=== PATIENT | male | born 1930 | race Caucasian/White ===

== ENCOUNTER 2016-08-30 10:31 | Emergency (ER) | payer MEDICARE, OTHER | END 2016-08-30 13:31 | disposition home or self-care (01) | LOC: D.ER 10:31 | DX: S91.115A Laceration without foreign body of left lesser toe(s) without damage to nail, initial encounter (principal); W22.8XXA Striking against or struck by other objects, initial encounter; Y93.89 Activity, other specified; Y92.019 Unspecified place in single-family (private) house as the place of occurrence of the external cause; Z95.0 Presence of cardiac pacemaker; I48.2 Chronic atrial fibrillation; N18.9 Chronic kidney disease, unspecified; Z95.1 Presence of aortocoronary bypass graft; E11.9 Type 2 diabetes mellitus without complications; Z79.4 Long term (current) use of insulin; I12.9 Hypertensive chronic kidney disease with stage 1 through stage 4 chronic kidney disease, or unspecified chronic kidney disease ==

== ENCOUNTER 2017-09-20 11:39 | Emergency (ER) | payer MEDICARE, OTHER ==
[2017-09-20 13:06] LABS: HEMATOCRIT 40.8 % (42.0-54.0); HEMOGLOBIN 12.6 g/dL (13.5-17.5); LYMPHOCYTES 19.6 % (15-50); MCH 28.3 pg (26.0-34.0); MCHC 30.9 g/dL (31.0-37.0); MCV 91.7 fL (80.0-100.0); MEAN PLATELET VOLUME 10.9 fL (7.4-10.4); MONOCYTES 8.8 % (2-11); PLATELET COUNT 111 10x3/uL (130-400); RBC 4.45 10x6/uL (4.20-6.10); RDW 15.7 % (11.5-14.5); WBC 4.9 10x3/uL (4.8-10.8)
[2017-09-20 13:07] LABS: BASOPHILS 0.2 % (0-2); EOSINOPHILS 1.4 % (0-7)
[2017-09-20 13:23] LABS: ALBUMIN 3.7 g/dL (3.4-5.0); ANION GAP 13.2 mmol/L (8-16); C-REACTIVE PROTEIN 0.6 mg/dL (0.0-0.9); CALCIUM 9.1 mg/dL (8.5-10.1); CARBON DIOXIDE 28.8 mmol/L (21.0-32.0); CREATININE - SERUM 2.1 mg/dL (0.6-1.3); PROTEIN - SERUM 7.4 g/dL (6.4-8.2)
[2017-09-20 14:39] LABS: ERYTHROCYTE SEDIMENTATION RATE 20 mm/hr (0-30)
== END 2017-09-20 14:57 | disposition home or self-care (01) ==
LOC: D.ER 11:39
PROVIDERS: Emergency Medicine
DX: R51 Headache (principal); E86.0 Dehydration; Z95.0 Presence of cardiac pacemaker; I12.9 Hypertensive chronic kidney disease with stage 1 through stage 4 chronic kidney disease, or unspecified chronic kidney disease; N18.9 Chronic kidney disease, unspecified; E11.9 Type 2 diabetes mellitus without complications; Z79.4 Long term (current) use of insulin

== ENCOUNTER 2017-10-26 21:21 | Inpatient (IN) | payer MEDICARE, OTHER ==
[~2017-10-26] VITALS: Ht 175.3 cm; Wt 106.6 kg
--- NOTE | ~2017-10-26 | HP ---
PATIENT: BRYAN GRIMALDO MEDICAL RECORD: [id number] ACCOUNT: [id number] LOCATION:[id number] : [birth year] ADMISSION DATE: 10/28/17 HISTORY AND PHYSICAL EXAMINATION CHIEF COMPLAINT: Not feeling well. HISTORY OF PRESENT ILLNESS: This is an 87-year-old white male who was brought in by his because he told her that he was just not feeling well. He became acutely short of breath. states that he was "fighting to breathe." She called EMS. I do not have any of their records. She states he has not eaten much in the last few days. He does not seem to have the appetite that he used to have. He has multiple medical problems. In the ER, his BUN and creatinine were 45 and 1.6, which is about normal for him. His troponin was little elevated at 0.149 and the second testing was a little higher at 0.175. His proBNP was 6736. I saw the patient in my office just a couple of days ago, and when the said that he was not feeling well, he had gone to the [facility] here in town and had CBC and BMP and a proBNP done, and the proBNP then was about 8000. He had his torsemide increased and they told him to take half of a spironolactone 25 mg. told me that the patient's last echocardiogram done at [facility] showed "4-chambered hypertrophy, hypokinesis, and 30% ejection fraction." He is admitted for CHF exacerbation. PAST MEDICAL HISTORY: The patient has diabetes, hypertension, coronary artery disease, arthritis, dementia, chronic kidney disease with baseline creatinine of 1.6 to 1.7. He has history of spinal stenosis, peripheral neuropathy, atrial fibrillation/flutter, sleep apnea, not on CPAP, recurrent UTIs and a history of CHF. PAST SURGICAL HISTORY: He has had cholecystectomy, coronary artery bypass grafting, cataract extraction, carotid endarterectomy times 2 on the right and times 1 on the left. He has had rotator cuff surgery times 2 on the right and one on the left. He has had a left total hip arthroplasty and had a postoperative DVT. He had renal artery stents. He has had cardiac stents, right knee arthroscopy and urethral dilatations. ALLERGIES: FERNANDO INHIBITOR AND DOXYCYCLINE. HABITS: Former smoker. No alcohol or drugs. FAMILY HISTORY: Father at age 53 of a heart attack. Mother at 63 of cancer. Sister at 86 and a brother at 53 of heart attack. HOME MEDICATIONS: Include carvedilol 6.125 one-half tablet once a day, pravastatin 40 mg once a day, spironolactone 25 mg one-half a day, aspirin 81 mg a day, gabapentin 100 mg at bedtime, torsemide 100 mg a day, Protonix 40 mg a day, warfarin 4 mg every day, Lantus 20 units once a day and NovoLog sliding scale. REVIEW OF SYSTEMS: GENERAL: No major weight changes. HEENT: No particular sinus or allergy problems. RESPIRATORY: No known diagnosis of COPD or emphysema. CARDIAC: See above history. He is followed by Dr. Billings at [facility]. HISTORY AND PHYSICAL [id number] BRYAN GRIMALDO GASTROINTESTINAL: He has had reflux. GENITOURINARY: History of urinary tract infections and has required urethral dilatations. MUSCULOSKELETAL: Has history of spinal stenosis, has peripheral neuropathy. NEUROLOGIC: Has history of dementia. describes as mild. PSYCHIATRIC: No depression or melancholia. PHYSICAL EXAMINATION: VITAL SIGNS: Blood pressure 108/64, temperature 96.0, pulse 82, respirations 20. GENERAL: He is awake, alert, in no acute distress. When I talk to him and ask him if he knows why he is here, he states he does not. He says he feels fine. HEENT: Grossly within normal limits. NECK: Supple. No JVD or bruits. HEART: Regular rate and rhythm. LUNGS: Diminished breath sounds in the bases bilaterally. ABDOMEN: Soft, nontender. EXTREMITIES: No significant edema. LABORATORY DATA: Chest x-ray consistent with mild CHF. ProBNP 6736. Troponin 0.149 and repeat is 0.175. INR 2.98. Basic metabolic panel; sodium 139, potassium 3.6, chloride 100, CO2 29.7, BUN 45, creatinine 1.6, glucose 134, calcium 9.5. CBC is normal except platelets are low at 98,000. ASSESSMENT: 1. Acute systolic congestive heart failure exacerbation. 2. History of coronary artery disease. 3. Diabetes. 4. Hypertension. 5. Dementia. PLAN: Cardiology has been consulted. We will diurese. Other tests and procedures as warranted. TRANSINT:[id number] Voice Confirmation ID: [id number] DOCUMENT ID: [id number] CHELSEA PALACIO MD at 0854 CC: [id number] DICTATION DATE: 10/28/17916 SPINNING LATHE OPERATOR HYDRAULIC: 10/28/17 1220 ADM IN [place] [id number] [place] [id number]
[2017-10-26 22:06] LABS: BASOPHILS 0.2 % (0-2); EOSINOPHILS 0.9 % (0-7); HEMATOCRIT 43.5 % (42.0-54.0); HEMOGLOBIN 13.7 g/dL (13.5-17.5); IMMATURE GRANULOCYTES 0.2 % (0-5); LYMPHOCYTES 15.5 % (15-50); MCH 28.2 pg (26.0-34.0); MCHC 31.5 g/dL (31.0-37.0); MCV 89.7 fL (80.0-100.0); MONOCYTES 8.4 % (2-11); NEUTROPHILS 74.8 % (40-80); PLATELET COUNT 106 10x3/uL (130-400); RBC 4.85 10x6/uL (4.20-6.10); RDW 16.4 % (11.5-14.5); WBC 4.6 10x3/uL (4.8-10.8)
[2017-10-26 22:20] LABS: INR 3.44 (0.85-1.17); PROTIME 33.9 SECONDS (11.6-15.0)
[2017-10-26 22:21] LABS: APTT 76.7 SECONDS (22.8-39.4)
[2017-10-26 22:22] LABS: ALBUMIN 3.5 g/dL (3.4-5.0); ALKALINE PHOSPHATASE 85 U/L (46-116); ALT (SGPT) 22 U/L (10-68); BILIRUBIN - TOTAL 1.57 mg/dL (0.2-1.3); CALC OSMOLALITY 287 mosm/kg (275-300); CALCIUM 9.2 mg/dL (8.5-10.1); CARBON DIOXIDE 29.7 mmol/L (21.0-32.0); CHLORIDE - SERUM 99 mmol/L (98-107); CREATININE - SERUM 1.7 mg/dL (0.6-1.3); POTASSIUM - SERUM 3.9 mmol/L (3.5-5.1); PROTEIN - SERUM 7.3 g/dL (6.4-8.2); SODIUM 136 mmol/L (136-145); UREA NITROGEN 47 mg/dL (7-18); eGFR NON AFRICAN AMERICAN 41 mL/min (90-120)
[2017-10-26 22:23] LABS: GLUCOSE 176 mg/dL (74-106)
[2017-10-26 22:27] LABS: APPEARANCE CLEAR (CLEAR); BILIRUBIN NEGATIVE (NEGATIVE); COLOR YELLOW (YELLOW); GLUCOSE NEGATIVE (NEGATIVE); KETONE NEGATIVE (NEGATIVE); NITRITE NEGATIVE (NEGATIVE); PROTEIN NEGATIVE (NEGATIVE); SPECIFIC GRAVITY 1.015 (1.005-1.020); UROBILINOGEN NORMAL (NORMAL)
[2017-10-26 22:29] LABS: BACTERIA FEW /hpf (NONE SEEN); EPITHELIAL CELLS 0-5 /hpf (0-5); WHITE CELLS - URINE 0-5 /hpf (0-5)
[2017-10-26 22:38] LABS: CKMB 1.2 U/L (0.0-3.6); CREATINE KINASE 43 UL (21-232); PRO BNP 6736 pg/mL (0-450)
[2017-10-26 22:41] LABS: TROPONIN-I 0.149 ng/mL (0.000-0.060)
[2017-10-26 23:03] LABS: AMYLASE - SERUM 26 U/L (25-115); LIPASE 64 U/L (73-393)
[2017-10-27] MEDS ORDERED: DEMADEX10 MG PO (02:48)
[2017-10-27] MEDS ORDERED: PRAVACHOL40 MG PO (02:48)
[2017-10-27] MEDS ORDERED: PROTONIX40 MG PO (02:49)
[2017-10-27] MEDS ORDERED: BAYER CHEWABLE81 MG PO (02:50)
[2017-10-27] MEDS ORDERED: GABAPENTIN100 MG PO (02:50)
[2017-10-27] MEDS ORDERED: LANTUS INSULIN10 ML SC (02:51)
[2017-10-27] MEDS ORDERED: COREG6.25 MG PO (02:51)
[2017-10-27] MEDS ORDERED: NOVOLOG100 U/M1 SC (02:52)
[2017-10-27] MEDS ORDERED: ALDACTONE25 MG PO (02:52)
[2017-10-27 03:14] VITALS: BP 144/78; BMI 34.7
[2017-10-27 06:26] LABS: HEMATOCRIT 42.6 % (42.0-54.0); HEMOGLOBIN 13.3 g/dL (13.5-17.5); MCHC 31.2 g/dL (31.0-37.0); MCV 89.7 fL (80.0-100.0); MEAN PLATELET VOLUME 12.2 fL (7.4-10.4); PLATELET COUNT 98 10x3/uL (130-400); RBC 4.75 10x6/uL (4.20-6.10); RDW 16.7 % (11.5-14.5); WBC 4.3 10x3/uL (4.8-10.8)
[2017-10-27 06:33] LABS: INR 2.98 (0.85-1.17); PROTIME 30.2 SECONDS (11.6-15.0)
[2017-10-27 06:41] LABS: ANION GAP 12.9 mmol/L (8-16); CALCIUM 9.5 mg/dL (8.5-10.1); CARBON DIOXIDE 29.7 mmol/L (21.0-32.0); CREATININE - SERUM 1.6 mg/dL (0.6-1.3); MAGNESIUM - SERUM 2.5 mg/dL (1.8-2.4); POTASSIUM - SERUM 3.6 mmol/L (3.5-5.1)
[2017-10-27 07:02] LABS: CKMB 1.1 U/L (0.0-3.6); CREATINE KINASE 49 UL (21-232)
[2017-10-27 07:04] LABS: TROPONIN-I 0.175 ng/mL (0.000-0.060)
[2017-10-27 07:40] LABS: EOSINOPHILS 1 % (0-7); LYMPHOCYTES 23 % (15-50); MONOCYTES 8 % (2-11); NEUTROPHILS 66 % (40-80); PLATELET ESTIMATE DECREASED
[2017-10-27 07:41] LABS: ROULEAUX OCC
[2017-10-27] MEDS ORDERED: PROTONIX20 MG PO (09:06)
[2017-10-27] MEDS ORDERED: LANTUS INSULIN10 ML SQ (09:08)
[2017-10-27] MEDS ORDERED: COUMADIN4 MG PO (09:08)
[2017-10-27 09:13] VITALS: BP 138/70
[2017-10-27 11:26] LABS: CKMB 1.2 U/L (0.0-3.6); CREATINE KINASE 36 UL (21-232)
[2017-10-27 12:29] VITALS: BP 109/62
[2017-10-27 13:19] VITALS: Ht 175.3 cm; Wt 106.6 kg
[2017-10-27 16:15] VITALS: BP 121/74
[2017-10-27 16:55] LABS: CKMB 1.4 U/L (0.0-3.6); CREATINE KINASE 38 UL (21-232)
[2017-10-27 17:01] LABS: TROPONIN-I 0.129 ng/mL (0.000-0.060)
[2017-10-27 20:00] VITALS: BP 130/75
[2017-10-28] VITALS: BP 112/62
[2017-10-28 04:00] VITALS: BP 94/56
[2017-10-28 08:07] VITALS: BP 133/73
[2017-10-28 12:15] VITALS: BP 122/83
[2017-10-28 16:24] VITALS: BP 124/74
[2017-10-28 20:00] VITALS: BP 127/64
[2017-10-29] VITALS: BP 133/67
[2017-10-29 04:00] VITALS: BP 138/61
[2017-10-29 05:28] LABS: BASOPHILS 0.6 % (0-2); EOSINOPHILS 1.4 % (0-7); HEMATOCRIT 40.3 % (42.0-54.0); HEMOGLOBIN 12.6 g/dL (13.5-17.5); IMMATURE GRANULOCYTES 0.3 % (0-5); LYMPHOCYTES 19.8 % (15-50); MCH 28.1 pg (26.0-34.0); MCHC 31.3 g/dL (31.0-37.0); MEAN PLATELET VOLUME 10.9 fL (7.4-10.4); MONOCYTES 8.8 % (2-11); NEUTROPHILS 69.1 % (40-80); PLATELET COUNT 85 10x3/uL (130-400); RBC 4.48 10x6/uL (4.20-6.10); RDW 16.6 % (11.5-14.5); WBC 3.5 10x3/uL (4.8-10.8)
[2017-10-29 06:07] LABS: ANION GAP 14.5 mmol/L (8-16); CALCIUM 9.5 mg/dL (8.5-10.1); CARBON DIOXIDE 28.8 mmol/L (21.0-32.0); CREATININE - SERUM 1.7 mg/dL (0.6-1.3)
[2017-10-29 06:11] LABS: POTASSIUM - SERUM 4.3 mmol/L (3.5-5.1)
[2017-10-29 08:18] VITALS: BP 142/75
[2017-10-29 12:42] VITALS: BP 146/77
[2017-10-29 16:22] VITALS: BP 140/83
[2017-10-29 21:31] VITALS: BP 121/69
[2017-10-30 00:50] VITALS: BP 125/70
[2017-10-30 05:43] VITALS: BP 134/74
[2017-10-30 06:20] LABS: BASOPHILS 0.3 % (0-2); EOSINOPHILS 1.4 % (0-7); HEMATOCRIT 40.6 % (42.0-54.0); HEMOGLOBIN 12.9 g/dL (13.5-17.5); IMMATURE GRANULOCYTES 0.3 % (0-5); LYMPHOCYTES 19.7 % (15-50); MCH 27.9 pg (26.0-34.0); MCHC 31.8 g/dL (31.0-37.0); MEAN PLATELET VOLUME 11.5 fL (7.4-10.4); MONOCYTES 8.6 % (2-11); NEUTROPHILS 69.7 % (40-80); PLATELET COUNT 84 10x3/uL (130-400); RBC 4.62 10x6/uL (4.20-6.10); RDW 16.5 % (11.5-14.5); WBC 3.6 10x3/uL (4.8-10.8)
[2017-10-30 06:23] LABS: MCV 87.9 fL (80.0-100.0)
[2017-10-30 06:29] LABS: INR 2.68 (0.85-1.17); PROTIME 27.8 SECONDS (11.6-15.0)
[2017-10-30 06:36] LABS: ANION GAP 14.9 mmol/L (8-16); CALCIUM 8.9 mg/dL (8.5-10.1); CARBON DIOXIDE 26.5 mmol/L (21.0-32.0); CREATININE - SERUM 1.5 mg/dL (0.6-1.3); POTASSIUM - SERUM 4.4 mmol/L (3.5-5.1)
[2017-10-30 09:59] VITALS: BP 130/76
[2017-10-30 11:55] VITALS: BP 152/75
[2017-10-30 16:48] VITALS: BP 150/76
[2017-10-30 20:00] VITALS: BP 114/56
[2017-10-31 04:00] VITALS: BP 128/75
[2017-10-31 06:05] LABS: BASOPHILS 0.6 % (0-2); EOSINOPHILS 1.8 % (0-7); HEMATOCRIT 40.7 % (42.0-54.0); HEMOGLOBIN 12.7 g/dL (13.5-17.5); LYMPHOCYTES 20.8 % (15-50); MCH 27.9 pg (26.0-34.0); MCHC 31.2 g/dL (31.0-37.0); MCV 89.5 fL (80.0-100.0); MEAN PLATELET VOLUME 11.2 fL (7.4-10.4); MONOCYTES 9.8 % (2-11); PLATELET COUNT 92 10x3/uL (130-400); RBC 4.55 10x6/uL (4.20-6.10); RDW 16.8 % (11.5-14.5); WBC 3.4 10x3/uL (4.8-10.8)
[2017-10-31 06:24] LABS: ANION GAP 12.3 mmol/L (8-16); CALCIUM 8.7 mg/dL (8.5-10.1); CARBON DIOXIDE 29.9 mmol/L (21.0-32.0); CREATININE - SERUM 1.4 mg/dL (0.6-1.3); POTASSIUM - SERUM 4.2 mmol/L (3.5-5.1)
[2017-10-31 08:32] VITALS: BP 110/72
[2017-10-31 13:41] VITALS: BP 124/73
[2017-10-31 16:32] VITALS: BP 129/72
[2017-10-31 20:00] VITALS: BP 129/67
[2017-11-01] VITALS: BP 112/60
[2017-11-01 04:00] VITALS: BP 136/72
[2017-11-01 08:03] VITALS: BP 122/69
[2017-11-01] MEDS ORDERED: HUMULIN R100 U/ML SC (13:04)
== END 2017-11-01 11:12 | DRG 291 ==
LOC: D.ER 21:21 → OBSVTIME 10-27 00:55 → D.EDHOLD 10-27 00:55 → D.MS 10-27 01:22
PROVIDERS: Family Medicine
DX: I13.0 Hypertensive heart and chronic kidney disease with heart failure and stage 1 through stage 4 chronic kidney disease, or unspecified chronic kidney disease (principal); I50.23 Acute on chronic systolic (congestive) heart failure; N18.9 Chronic kidney disease, unspecified; I11.0 Hypertensive heart disease with heart failure; E11.9 Type 2 diabetes mellitus without complications; F03.90 Unspecified dementia, unspecified severity, without behavioral disturbance, psychotic disturbance, mood disturbance, and anxiety

== ENCOUNTER 2017-11-01 12:42 | Inpatient (IN) | payer MEDICARE, OTHER ==
[~2017-11-01] VITALS: Ht 175.3 cm; Wt 99.8 kg
--- NOTE | ~2017-11-01 | DS ---
PATIENT:BRYAN GRIMALDO :[birth year] MEDICAL RECORD: [id number] DISCHARGE SUMMARY ADMISSION DATE: 11/01/17 DISCHARGE DATE: 11/17/17 This is a discharge dated 11/17/2017 from the inpatient rehabilitation. PRIMARY DIAGNOSIS: Decreased functional ability and ability to provide activities of daily living secondary to CHF myopathy. SECONDARY DIAGNOSES: 1. Chronic systolic congestive heart failure. 2. Atrial fibrillation. 3. Vgcxc-jh-ticziwg respiratory failure. 4. Bilateral DVT. 5. Hypokalemia. 6. Urinary hesitancy. 7. Chronic urethral stricture. 8. Recurrent UTIs. 9. Diabetes. 10. Coronary artery disease. 11. Chronic kidney disease. 12. Obstructive sleep apnea. 13. Spinal stenosis. 14. Hypertension. 15. Dementia. 16. Mitral regurgitation. 17. Left side pleural effusion. 18. Peripheral neuropathy. 19. Anemia. 20. Hyperlipidemia. 21. Arthritis. CONSULTS THIS HOSPITALIZATION: Urology with Dr. Higgins. HOSPITAL COURSE: Full H&P is located elsewhere on the chart on this 87-year-old male who was admitted to inpatient rehab for physical therapy and occupational therapy to improve gait, transfer skills, bed mobility, and activities of daily living to a modified independent level. He was evaluated by PT and OT and their plans of care were followed. He required [facility] care for observation and assessment and medication administration. Electrolytes were managed by protocol. He continued on appropriate home medications. Fingerstick blood sugars were monitored throughout his hospital stay with appropriate adjustment in medications as needed. He remained on supplemental oxygen for respiratory support. He complained of some urinary hesitancy. Urology was consulted. He was seen by Dr. Higgins. He does have a chronic urethral stricture and Dr. Higgins recommended surgery when medically stable. He was cooperative with therapies, progressing towards goals. Case management was involved for discharge planning. He was considered stable for discharge on 11/17/2017. DISCHARGE MEDICATIONS: As per discharge medication reconciliation. DISCHARGE DISPOSITION: The patient is discharged home. He will continue his current diet and level of activity and will have home health for continued nursing, PT and OT. He will follow up with primary care and specialists as directed. DISCHARGE SUMMARY REPORT [id number] BRYAN GRIMALDO At least 30 minutes was spent in this discharge activity. TRANSINT:[id number] Voice Confirmation ID: [id number] DOCUMENT ID: [id number] Dictated By: PAULINO MELVIN I have interviewed/examined the above patient and agree with these documented findings. TIFFANY MOBLEY MD at 1157 at 0940 CC: [id number] DICTATION DATE: 12/30/17 1749 RELOCATION MANAGER: 12/31/17 1058 DIS IN 11/17/17 [place] [id number] [place] [id number]
--- NOTE | ~2017-11-01 | RHP ---
PATIENT: BRYAN GRIMALDO MEDICAL RECORD: [id number] ACCOUNT: [id number] LOCATION:[id number] : [birth year] ADMISSION DATE: 11/01/17 REHABILITATION HISTORY AND PHYSICAL EXAMINATION POST ADMISSION PHYSICIAN EXAMINATION DATE OF ADMISSION: 11/01/2017 ADMITTING DIAGNOSIS: Congestive heart failure induced myopathy. HISTORY OF PRESENT ILLNESS: The patient is an 87-year-old gentleman admitted with neurological condition of congestive heart failure induced myopathy, was brought to the Emergency Room by his after he became acutely short of breath and was basically fighting debris. She reports that he had not eaten much in the previous few days, does not seem to have an appetite that he usually did. He stated that it began a couple of weeks ago and he declined with strength, requiring more assistance from her. He has multiple medical problems. In the Emergency Room, his BUN and creatinine were 45 and 1.6, which is really normal for him. His troponin was elevated. On second testing it actually had gone up. His proBNP was 6736. Dr. Whitmore saw the patient in the office just a couple days prior to his hospital admit when his said that he was not feeling well. He had gone to [facility] here in town and CBC and BMP and proBNP were done. The proBNP then was about 8000. He had his torsemide increased, was told to take half of spironolactone. told Dr. Whitmore that the patient's last echocardiogram done at [facility] showed 4 chamber hypertrophy, hypokinesis and 30% ejection fraction. He was admitted to the acute hospital for CHF. Cardiology was consulted. He had an EF of 20% to 25%. Dr. Billings saw him. He has got a history of hypertension, mitral regurg and dementia. He presented with shortness of breath and edema. Chest x-ray showed mild vascular congestion. ProBNP in the 6000 range. His chronic renal insufficiency showed a baseline creatinine of 1.6. Current plan was to discontinue diuresis and continue to follow the left pleural effusion he was diagnosed with. He is currently on 2 liters of O2 via home O2. Prior to his illness, he was modified independent with his ambulation using a motorized wheelchair, was independently transferring himself from bed to chair and to toilet. He was independent or min assist with ADLs, only requiring assistance for lower body dressing and showering. He currently has proximal muscle weakness. He is total assist with transfers, min to mod assist with ADLs. He will require intensive therapy to get back to his prior level of functioning and hopefully return home. COMORBIDITIES: Include pleural effusion, chronic systolic CHF, pacemaker defibrillator, coronary artery disease, diabetes, peripheral neuropathy, atrial fibrillation, atrial flutter, arthritis, dementia, history of spinal stenosis, sleep apnea, and recurrent UTIs. PAST MEDICAL HISTORY: Significant for depression, anxiety, malnutrition at times, pacemaker placement, coronary artery disease, chronic kidney disease, atrial fibrillation and flutter. PAST SURGICAL HISTORY: Includes cholecystectomy, coronary artery bypass grafting. He has had cataract extraction, carotid endarterectomy times 2, rotator cuff surgery. He has had right knee arthroscopy and also urethral dilatation. HISTORY AND PHYSICAL [id number] BRYAN GRIMALDO ALLERGIES: FERNANDO INHIBITORS AND DOXYCYCLINE. CURRENT MEDICATIONS: Include torsemide 100 mg daily. He is on spironolactone 12.5 mg daily, Pravachol 40 mg daily, Protonix 40 mg daily, Lantus 20 units daily, aspirin chewable 81 mg daily. He is on a glucose replacement protocol at this time. He is on warfarin 4 mg daily, Neurontin 100 mg q.h.s., Coreg 6.25 mg b.i.d., and polyethylene glycol 17 grams in 8 ounces of water daily. HABITS: No current alcohol or tobacco use. FAMILY HISTORY: Noncontributory. SOCIAL HISTORY: The patient once again hopes to return back home and get back to his . REVIEW OF SYSTEMS: GENERAL: Does complain of some weakness. HEENT: He denies cold, cough, or congestion. CARDIOVASCULAR: Denies chest pain. PHYSICAL EXAMINATION: VITAL SIGNS: Stable, afebrile. GENERAL: An elderly gentleman, in no acute distress, alert upon exam. HEENT: Normocephalic and atraumatic. Mucosa moist. NECK: Supple. No lymphadenopathy. LUNGS: Clear at this time. HEART: Irregular rate and rhythm. ABDOMEN: Benign. EXTREMITIES: No clubbing, cyanosis or edema. NEUROLOGIC: Intact. LABORATORY DATA: His white count is noted to be 3.4. His H&H of 12.8 and 41.3. His platelet count is noted to be 90. His INR is noted to be 2.64. His admitting sodium is 139, potassium 3.4, BUN and creatinine of 43 and 1.6, and blood sugar is noted to be 114. ASSESSMENT: This is an 87-year-old gentleman admitted to the rehab with a working diagnosis of congestive heart failure induced myopathy with an ejection fraction in the 30% range. The patient has potential to make improvement. We instituted the following multidisciplinary therapies including to but not limited to physical, occupational, respiratory, speech, nutritional services, prosthetics and orthotics. Given his complex condition and risk for more complications, rehabilitation services cannot be provided at a low level of care such as a intermediate facility. PLAN: 1. Admit to [facility] rehab for intensive inpatient therapy to include the following disciplines: A. Physical therapy to improve gait, all transfer skills and bed mobility to a modified independent level. B. Occupational therapy to improve activities of daily living to a modified independent level. C. Case management to assist with discharge planning and placement options. D. Nutrition to assist with nutritional needs. E. Rehabilitation nursing to assist in monitoring the patient's underlying HISTORY AND PHYSICAL [id number] BRYAN GRIMALDO medical conditions and to assist with any type of bowel or bladder management. 2. The patient's current medications will be continued. 3. The patient will be placed on standard fall precautions. 4. The patient's estimated length of stay is approximately 7-10 days. 5. Discuss this patient during care team staff meeting this week. TRANSINT:[id number] Voice Confirmation ID: [id number] DOCUMENT ID: [id number] CHUCK notes whether there has been none or any medical/functional change since admission: - No change since preadmission screen. CHUCK attests patient continues to be appropriate for IRF: - Continues to be appropriate. TIFFANY MOBLEY MD at 1139 CC: [id number] DICTATION DATE: 11/02/17 0845 MASTER MOTORCYCLE TECHNICIAN: 11/02/17 0938 DIS IN 11/17/17 [place] [id number]
[~2017-11-01 12:42] MED LIST: ALDACTONE25 MG PO; BAYER CHEWABLE81 MG PO; COREG6.25 MG PO; COUMADIN4 MG PO; DEMADEX10 MG PO; GABAPENTIN100 MG PO; LANTUS INSULIN10 ML SC; LANTUS INSULIN10 ML SQ; NOVOLOG100 U/M1 SC; PRAVACHOL40 MG PO; PROTONIX20 MG PO; PROTONIX40 MG PO
[2017-11-01] MEDS ORDERED: HUMULIN R100 U/ML SC (13:04)
[2017-11-01 14:17] LABS: INR 2.71 (0.85-1.17)
[2017-11-01 19:40] VITALS: BP 106/56
[2017-11-01 20:10] VITALS: BP 133/71
[2017-11-02 05:59] LABS: ANION GAP 9.6 mmol/L (8-16); CARBON DIOXIDE 36.8 mmol/L (21.0-32.0)
[2017-11-02 06:03] LABS: POTASSIUM - SERUM 3.4 mmol/L (3.5-5.1)
[2017-11-02 06:45] LABS: BASOPHILS 0.6 % (0-2); EOSINOPHILS 1.7 % (0-7); HEMATOCRIT 41.3 % (42.0-54.0); HEMOGLOBIN 12.8 g/dL (13.5-17.5); IMMATURE GRANULOCYTES 0.3 % (0-5); MCV 90.4 fL (80.0-100.0); MEAN PLATELET VOLUME 11.7 fL (7.4-10.4); MONOCYTES 11.1 % (2-11); NEUTROPHILS 70.3 % (40-80); PLATELET COUNT 90 10x3/uL (130-400); RBC 4.57 10x6/uL (4.20-6.10); RDW 16.9 % (11.5-14.5); WBC 3.4 10x3/uL (4.8-10.8)
[2017-11-02 07:03] LABS: CREATININE - SERUM 1.6 mg/dL (0.6-1.3)
[2017-11-02 07:04] LABS: CALCIUM 9.1 mg/dL (8.5-10.1)
[2017-11-02 07:25] LABS: INR 2.64 (0.85-1.17); PROTIME 27.5 SECONDS (11.6-15.0)
[2017-11-02 08:00] VITALS: BP 126/65
[2017-11-02 12:44] VITALS: BMI 32.5
[2017-11-03 00:05] VITALS: BP 113/68
[2017-11-03 06:20] LABS: INR 2.86 (0.85-1.17); PROTIME 29.2 SECONDS (11.6-15.0)
[2017-11-03 06:26] LABS: EOSINOPHILS 1.6 % (0-7); HEMOGLOBIN 11.7 g/dL (13.5-17.5); IMMATURE GRANULOCYTES 0.3 % (0-5); LYMPHOCYTES 18.8 % (15-50); MCHC 31.6 g/dL (31.0-37.0); MCV 88.5 fL (80.0-100.0); MEAN PLATELET VOLUME 11.7 fL (7.4-10.4); MONOCYTES 8.9 % (2-11); NEUTROPHILS 69.4 % (40-80); PLATELET COUNT 89 10x3/uL (130-400); RBC 4.18 10x6/uL (4.20-6.10); RDW 16.8 % (11.5-14.5); WBC 3.1 10x3/uL (4.8-10.8)
[2017-11-03 06:40] LABS: ANION GAP 12.9 mmol/L (8-16); CALCIUM 8.4 mg/dL (8.5-10.1); CARBON DIOXIDE 29.9 mmol/L (21.0-32.0); CREATININE - SERUM 1.5 mg/dL (0.6-1.3); POTASSIUM - SERUM 3.8 mmol/L (3.5-5.1)
[2017-11-03 08:09] VITALS: BP 124/69
[2017-11-03 20:43] VITALS: BP 128/72
[2017-11-04 07:20] LABS: PROTIME 30.4 SECONDS (11.6-15.0)
[2017-11-04 09:00] VITALS: BP 161/74
[2017-11-04 22:43] VITALS: BP 138/71
[2017-11-05 06:13] LABS: INR 2.49 (0.85-1.17); PROTIME 26.2 SECONDS (11.6-15.0)
[2017-11-05 09:47] VITALS: BP 115/63
[2017-11-05 20:06] VITALS: BP 140/74
[2017-11-06 07:09] LABS: BASOPHILS 0.5 % (0-2); EOSINOPHILS 1.1 % (0-7); HEMATOCRIT 39.4 % (42.0-54.0); HEMOGLOBIN 12.3 g/dL (13.5-17.5); IMMATURE GRANULOCYTES 0.3 % (0-5); LYMPHOCYTES 19.1 % (15-50); MCHC 31.2 g/dL (31.0-37.0); MCV 89.7 fL (80.0-100.0); MEAN PLATELET VOLUME 11.5 fL (7.4-10.4); PLATELET COUNT 98 10x3/uL (130-400); RBC 4.39 10x6/uL (4.20-6.10); RDW 16.7 % (11.5-14.5); WBC 3.7 10x3/uL (4.8-10.8)
[2017-11-06 07:21] LABS: INR 2.16 (0.85-1.17); PROTIME 23.4 SECONDS (11.6-15.0)
[2017-11-06 07:23] LABS: ANION GAP 14.3 mmol/L (8-16); CARBON DIOXIDE 28.4 mmol/L (21.0-32.0); CREATININE - SERUM 1.5 mg/dL (0.6-1.3); POTASSIUM - SERUM 3.7 mmol/L (3.5-5.1)
[2017-11-06 08:00] VITALS: BP 111/68
[2017-11-06 16:23] VITALS: BP 131/74
[2017-11-06 19:30] VITALS: BP 122/62
[2017-11-07 06:28] LABS: INR 2.28 (0.85-1.17); PROTIME 24.5 SECONDS (11.6-15.0)
[2017-11-07 08:17] VITALS: BP 110/63
[2017-11-07 19:52] VITALS: BP 111/52
[2017-11-08 07:31] LABS: BASOPHILS 0.3 % (0-2); EOSINOPHILS 0.3 % (0-7); HEMATOCRIT 41.9 % (42.0-54.0); HEMOGLOBIN 13.3 g/dL (13.5-17.5); IMMATURE GRANULOCYTES 0.3 % (0-5); LYMPHOCYTES 17.5 % (15-50); MCH 28.1 pg (26.0-34.0); MCHC 31.7 g/dL (31.0-37.0); MCV 88.6 fL (80.0-100.0); MEAN PLATELET VOLUME 11.2 fL (7.4-10.4); MONOCYTES 8.5 % (2-11); NEUTROPHILS 73.1 % (40-80); PLATELET COUNT 105 10x3/uL (130-400); RBC 4.73 10x6/uL (4.20-6.10); RDW 16.6 % (11.5-14.5); WBC 3.6 10x3/uL (4.8-10.8)
[2017-11-08 07:38] LABS: INR 2.38 (0.85-1.17); PROTIME 25.3 SECONDS (11.6-15.0)
[2017-11-08 07:50] LABS: ANION GAP 15.4 mmol/L (8-16); CALCIUM 8.9 mg/dL (8.5-10.1); CARBON DIOXIDE 28.4 mmol/L (21.0-32.0); CREATININE - SERUM 1.5 mg/dL (0.6-1.3); POTASSIUM - SERUM 3.8 mmol/L (3.5-5.1)
[2017-11-08 08:00] VITALS: BP 126/66
[2017-11-08 20:35] VITALS: BP 148/84
[2017-11-09 07:31] LABS: INR 2.85 (0.85-1.17); PROTIME 29.2 SECONDS (11.6-15.0)
[2017-11-09 08:11] VITALS: BP 122/70
[2017-11-09 20:43] VITALS: BP 106/57
[2017-11-10 06:53] LABS: INR 2.94 (0.85-1.17); PROTIME 29.9 SECONDS (11.6-15.0)
[2017-11-10 08:55] VITALS: BP 116/61
[2017-11-10 19:25] VITALS: BP 111/64
[2017-11-11 06:24] LABS: INR 3.18 (0.85-1.17); PROTIME 31.8 SECONDS (11.6-15.0)
[2017-11-11 09:36] VITALS: BP 113/65
[2017-11-11 19:10] VITALS: BP 114/63
[2017-11-12 07:52] VITALS: BP 130/65
[2017-11-12 10:01] LABS: INR 2.36 (0.85-1.17); PROTIME 25.2 SECONDS (11.6-15.0)
[2017-11-12 15:49] VITALS: BP 143/77
[2017-11-12 21:53] VITALS: BP 133/69
[2017-11-13 07:10] LABS: BASOPHILS 0.3 % (0-2); EOSINOPHILS 1.5 % (0-7); HEMOGLOBIN 12.3 g/dL (13.5-17.5); IMMATURE GRANULOCYTES 0.3 % (0-5); LYMPHOCYTES 16.6 % (15-50); MCH 27.8 pg (26.0-34.0); MCHC 31.5 g/dL (31.0-37.0); MEAN PLATELET VOLUME 10.9 fL (7.4-10.4); MONOCYTES 10.1 % (2-11); NEUTROPHILS 71.2 % (40-80); PLATELET COUNT 111 10x3/uL (130-400); RBC 4.43 10x6/uL (4.20-6.10); WBC 3.4 10x3/uL (4.8-10.8)
[2017-11-13 07:18] LABS: INR 2.12 (0.85-1.17); PROTIME 23.1 SECONDS (11.6-15.0)
[2017-11-13 07:34] VITALS: BP 123/64
[2017-11-13 07:38] LABS: ANION GAP 10.8 mmol/L (8-16); CALCIUM 9.2 mg/dL (8.5-10.1); CARBON DIOXIDE 32.4 mmol/L (21.0-32.0); CREATININE - SERUM 1.6 mg/dL (0.6-1.3); POTASSIUM - SERUM 3.2 mmol/L (3.5-5.1)
[2017-11-13 15:56] VITALS: BP 147/78
[2017-11-13 17:31] VITALS: Ht 175.3 cm; Wt 99.8 kg
[2017-11-13 18:52] VITALS: BP 132/67
[2017-11-14 07:40] LABS: BASOPHILS 0.6 % (0-2); EOSINOPHILS 0.8 % (0-7); HEMATOCRIT 40.4 % (42.0-54.0); HEMOGLOBIN 12.5 g/dL (13.5-17.5); IMMATURE GRANULOCYTES 0.3 % (0-5); MCH 27.6 pg (26.0-34.0); MCHC 30.9 g/dL (31.0-37.0); MCV 89.2 fL (80.0-100.0); MEAN PLATELET VOLUME 10.3 fL (7.4-10.4); MONOCYTES 10.4 % (2-11); NEUTROPHILS 68.9 % (40-80); PLATELET COUNT 113 10x3/uL (130-400); RBC 4.53 10x6/uL (4.20-6.10); RDW 17.4 % (11.5-14.5); WBC 3.6 10x3/uL (4.8-10.8)
[2017-11-14 07:50] LABS: ANION GAP 12.9 mmol/L (8-16); CALCIUM 9.2 mg/dL (8.5-10.1); CARBON DIOXIDE 33.1 mmol/L (21.0-32.0); CREATININE - SERUM 1.6 mg/dL (0.6-1.3)
[2017-11-14 07:51] LABS: INR 1.79 (0.85-1.17); PROTIME 20.3 SECONDS (11.6-15.0)
[2017-11-14 08:09] VITALS: BP 113/73
[2017-11-14 20:19] VITALS: BP 126/69
[2017-11-15 07:46] VITALS: BP 109/62
[2017-11-15 08:00] LABS: INR 2.02 (0.85-1.17); PROTIME 22.2 SECONDS (11.6-15.0)
[2017-11-15 20:06] VITALS: BP 118/68
[2017-11-16 07:07] LABS: INR 2.14 (0.85-1.17); PROTIME 23.3 SECONDS (11.6-15.0)
[2017-11-16 08:04] VITALS: BP 118/79
[2017-11-16 19:43] VITALS: BP 110/69
[2017-11-17 06:10] LABS: INR 2.42 (0.85-1.17); PROTIME 25.7 SECONDS (11.6-15.0)
[2017-11-17 09:45] VITALS: BP 104/61
== END 2017-11-17 13:29 | disposition home health service (06) | DRG 92 ==
LOC: D.REHAB 12:42
PROVIDERS: Emergency Medicine; Family Medicine
DX: G72.89 Other specified myopathies (principal); I13.0 Hypertensive heart and chronic kidney disease with heart failure and stage 1 through stage 4 chronic kidney disease, or unspecified chronic kidney disease; I50.22 Chronic systolic (congestive) heart failure; J90 Pleural effusion, not elsewhere classified; I48.92 Unspecified atrial flutter; N39.0 Urinary tract infection, site not specified; E11.22 Type 2 diabetes mellitus with diabetic chronic kidney disease; N18.9 Chronic kidney disease, unspecified; F03.90 Unspecified dementia, unspecified severity, without behavioral disturbance, psychotic disturbance, mood disturbance, and anxiety; I48.91 Unspecified atrial fibrillation; G62.9 Polyneuropathy, unspecified; Z95.0 Presence of cardiac pacemaker; G47.30 Sleep apnea, unspecified; M19.90 Unspecified osteoarthritis, unspecified site; I25.10 Atherosclerotic heart disease of native coronary artery without angina pectoris

== ENCOUNTER 2017-11-27 12:55 | Inpatient (IN) | payer MEDICARE, OTHER ==
[~2017-11-27] VITALS: Ht 175.3 cm; Wt 125.3 kg
--- NOTE | ~2017-11-27 | EC ---
PATIENT:BRYAN GRIMALDO DATE OF SERVICE: 11/27/17 SEX: M MEDICAL RECORD: [id number] DATE OF : [birth year] LOCATION:D.M2 D.210 AGE OF PATIENT: 87 ADMISSION DATE: 11/27/17 REFERRING PHYSICIAN: INTERPRETING PHYSICIAN: JOSE ANTONIO HOBBS MD ECHOCARDIOGRAM REPORT ECHO CHARGES 4 ECHO COMPLETE Date: 11/28 CLINICAL DIAGNOSIS: CHF HX OF CAD/CABG/ICD ECHOCARDIOGRAPHIC MEASUREMENTS (adult normal given) AC root (d.<3.7cm) 4.2 cm LV Septum d (<1.2 cm> 1.2 cm Valve Excursion 1.5 cm LV Septum (systole) 1.6 cm Left Atria (s.<4.0cm> 4.8 cm LVPW d(<1.2cm) 1.4 cm RV (d.<2.3cm) 5.4 cm LVPW (sytole) 1.9 cm LV diastole(<5.6CM) 6.0 cm MV E-F(>70mm/sec) cm LV systole 4.5 cm LVOT Diameter 1.5 cm MV exc.(>10mm) 1.5 cm Est.ejection fraction (50-75%) % DOPPLER: LVIT cm/sec A cm/sec E cm/sec LA cm/sec RVSP 50 mmHg LVOT 87 cm/sec AOP1/2T m/s Asc. Ao 123 cm/sec RVOT 60 cm/sec RA cm/sec PA 94 cm/sec AV Gradient Peak 6.06 mmHg AV Mean 3.14 mmHg AV Area 1.3 cm MV Gradient Peak 5.18 mmHg MV Mean 1.67 mmHg MV Area cm COMMENTS: Sports Athletic Trainer: Randee ROLON User Experience Lead: 4 Dr. Hobbs TAPE# PACS Pericardial Effusion N DATE OF SERVICE: PROCEDURE: Transthoracic echocardiogram. FINDINGS: 1. Left ventricle shows dilatation, global hypokinesis. The inferior basilar wall is dyskinetic. The right ventricular structure shows a pacer or wire artifact. 2. The left atrium is moderately severely dilated. 3. The aortic valve is normal. ECHOCARDIOGRAM REPORT [id number] BRYAN GRIMALDO 4. The mitral valve has severe mitral regurgitation. 5. The tricuspid valve has moderate tricuspid regurgitation. CONCLUSIONS: The patient has ischemic cardiomyopathy, ejection fraction of 30% with significant inferior basilar dyskinetic and aneurysmal segment. No thrombus is obvious. The patient has moderate pulmonary hypertension. TRANSINT:[id number] Voice Confirmation ID: [id number] DOCUMENT ID: [id number] JOSE ANTONIO HOBBS MD at 0957 CC: [id number] DICTATION DATE: 11/29/17 0838 SCREEN PRINTING MACHINE OPERATOR: 11/29/17 1231 ADM IN [facility] [address] [place] [address]
--- NOTE | ~2017-11-27 | HP ---
PATIENT: BRYAN GRIMALDO MEDICAL RECORD: [id number] ACCOUNT: [id number] LOCATION:[address] : [birth year] ADMISSION DATE: 11/27/17 HISTORY AND PHYSICAL EXAMINATION DATE OF ADMISSION: 11/27/2017 CHIEF COMPLAINT: Weakness and increased lower extremity edema. HISTORY OF PRESENT ILLNESS: This is an 87-year-old white male who was going to see the inventory associate for the first time in his office today, but he had gotten weaker, more short of breath, increased lower extremity edema. He has a couple of wounds on his buttock area and because he was getting worse, he went to the Emergency Department instead. There his CBC was okay except platelets a little low. His INR was on the high side at 3.93. His BUN and creatinine were 68 and 2.3 with a baseline of about 1.6 just a couple of months ago. His proBNP was 10,130, which is the highest it has been. Chest x-ray showed cardiomegaly with a pacemaker in the left upper chest area. He is admitted for acute CHF exacerbation and wound care. PAST MEDICAL HISTORY: He had been going to [facility]. The remembered his last echo there showed "4 chambered hypertrophy and hypokinesis and a 30% ejection fraction." He had a history of coronary artery disease, carotid artery disease, arthritis, diabetes, hypertension, dementia, chronic kidney disease, spinal stenosis, peripheral neuropathy, atrial fibrillation/flutter, recurrent urinary tract infections, and sleep apnea. PAST SURGICAL HISTORY: Cholecystectomy, coronary artery bypass grafting, cataract extraction, carotid endarterectomy twice on the right and once on the left, rotator cuff surgery twice on the right and once on the left, left total hip arthroplasty with postoperative DVT. He has had renal artery stenosis with cardiac stents, right knee arthroscopy, and urethral dilatation. ALLERGIES: FERNANDO INHIBITOR AND DOXYCYCLINE. HABITS: Former smoker, no alcohol or drugs. HOME MEDICATIONS: Include carvedilol 6.25 mg at bedtime, gabapentin 100 mg at bedtime, Lantus insulin 16 units at bedtime, warfarin 4 mg a day, pravastatin 40 mg a day, torsemide 100 mg a day, aspirin 81 mg a day, Spironolactone 25 mg one half daily, vitamin D3 2000 units once daily, NovoLog per sliding scale, and Pantoprazole 40 mg daily. HABITS: Former smoker, no alcohol or drugs. FAMILY HISTORY: Father at 53 of an [place]. Mother at 63 of cancer. Sister at 86. Another brother at 53 of an [place]. REVIEW OF SYSTEMS: GENERAL: No major weight changes up or down. HEENT: No particular sinus or allergy problems. RESPIRATORY: No history of chronic obstructive pulmonary disease. CARDIAC: Has a history of atrial fibrillation flutter, on warfarin. He has had coronary artery disease, carotid artery disease, and renal artery disease. GASTROINTESTINAL: No significant trouble with constipation or diarrhea. HISTORY AND PHYSICAL [id number] BRYAN GRIMALDO GENITOURINARY: He has had recurrent urinary tract infections. He has required recurrent urethral dilatations in the past. NEUROLOGICAL: He has dementia. No migraines. No seizures. PSYCHIATRIC: No depression or melancholia. PHYSICAL EXAMINATION: VITAL SIGNS: Temperature 97.3, pulse 74, respirations 16, blood pressure 110/64, O2 sat 99% on 2 liters. GENERAL: He is awake and alert. His is not present at this time. He does not know why he is here. He has dementia. HEENT: Grossly within normal limits. NECK: Supple. HEART: Regular rate and rhythm without murmur. LUNGS: Fairly clear. ABDOMEN: Soft, flat, nontender. EXTREMITIES: 3+ pitting edema. SKIN: On his buttocks on the left side, there is a stage II breakdown and on the right side, there is a stage I. ASSESSMENT: 1. Rfjpq-yz-uxjsmbp systolic heart failure with elevated proBNP. 2. Wounds on sacrum. 3. Dementia. 4. Diabetes. PLAN: We will diurese. We will consult Dr. Padilla, who he was going to see today in his office for the first time. Consult wound care. We will put him on diabetic diet, insulin sliding scale, need to discuss code status with the patient's , so far he is a FULL CODE. TRANSINT:[id number] Voice Confirmation ID: [id number] DOCUMENT ID: [id number] CHELSEA PALACIO MD at 0818 CC: [id number] DICTATION DATE: 11/27/172104 LAND SURVEY TECHNICIAN: 11/27/17 2250 ADM IN [place] [id number] [place] [address]
[~2017-11-27 12:55] MED LIST changes: +HUMULIN R100 U/ML SC
[2017-11-27 13:26] LABS: BASOPHILS 0.5 % (0-2); EOSINOPHILS 1.2 % (0-7); HEMATOCRIT 42.8 % (42.0-54.0); HEMOGLOBIN 13.6 g/dL (13.5-17.5); LYMPHOCYTES 17.1 % (15-50); MCH 27.9 pg (26.0-34.0); MCHC 31.8 g/dL (31.0-37.0); MCV 87.9 fL (80.0-100.0); MEAN PLATELET VOLUME 11.6 fL (7.4-10.4); MONOCYTES 9.4 % (2-11); NEUTROPHILS 71.8 % (40-80); PLATELET COUNT 117 10x3/uL (130-400); RBC 4.87 10x6/uL (4.20-6.10); RDW 17.9 % (11.5-14.5)
[2017-11-27 13:39] LABS: ALBUMIN 3.5 g/dL (3.4-5.0); ANION GAP 11.7 mmol/L (8-16); BILIRUBIN - TOTAL 2.26 mg/dL (0.2-1.3); CALCIUM 9.3 mg/dL (8.5-10.1); CARBON DIOXIDE 30.7 mmol/L (21.0-32.0); CREATININE - SERUM 2.3 mg/dL (0.6-1.3); POTASSIUM - SERUM 4.4 mmol/L (3.5-5.1); PROTEIN - SERUM 7.5 g/dL (6.4-8.2)
[2017-11-27 13:57] LABS: APPEARANCE CLEAR (CLEAR); BILIRUBIN NEGATIVE (NEGATIVE); COLOR DK YELLOW (YELLOW); GLUCOSE NEGATIVE (NEGATIVE); KETONE NEGATIVE (NEGATIVE); NITRITE NEGATIVE (NEGATIVE); PROTEIN NEGATIVE (NEGATIVE); SPECIFIC GRAVITY 1.015 (1.005-1.020)
[2017-11-27 13:58] LABS: BACTERIA FEW /hpf (NONE SEEN); EPITHELIAL CELLS 0-5 /hpf (0-5); HYALINE CAST OCC /lpf (NONE SEEN); WHITE CELLS - URINE 0-5 /hpf (0-5)
[2017-11-27] MEDS ORDERED: NOVOLOG100 U/M1 SC (17:50)
[2017-11-27] MEDS ORDERED: VITAMIN D2000 UNIT PO (17:51)
[2017-11-27 18:09] VITALS: BP 110/64; BMI 36.3
[2017-11-27 18:58] LABS: APTT 39.7 SECONDS (22.8-39.4); INR 3.93 (0.85-1.17); PROTIME 37.6 SECONDS (11.6-15.0)
[2017-11-27 21:09] VITALS: BP 130/66
[2017-11-28 04:13] LABS: BASOPHILS 1.3 % (0-2); HEMATOCRIT 38.7 % (42.0-54.0); LYMPHOCYTES 19.7 % (15-50); MCV 87.2 fL (80.0-100.0); MEAN PLATELET VOLUME 11.4 fL (7.4-10.4); MONOCYTES 11.1 % (2-11); NEUTROPHILS 66.9 % (40-80); PLATELET COUNT 105 10x3/uL (130-400); RBC 4.44 10x6/uL (4.20-6.10); RDW 17.7 % (11.5-14.5); WBC 3.2 10x3/uL (4.8-10.8)
[2017-11-28 04:23] LABS: INR 3.69 (0.85-1.17); PROTIME 35.8 SECONDS (11.6-15.0)
[2017-11-28 04:26] LABS: ANION GAP 10.1 mmol/L (8-16); CALCIUM 8.6 mg/dL (8.5-10.1); CARBON DIOXIDE 32.6 mmol/L (21.0-32.0); CREATININE - SERUM 2.1 mg/dL (0.6-1.3); POTASSIUM - SERUM 3.7 mmol/L (3.5-5.1)
[2017-11-28 06:16] VITALS: BP 132/71
[2017-11-28 09:07] VITALS: BP 130/69
[2017-11-28 10:18] VITALS: BMI 37.1
[2017-11-28 12:15] VITALS: BP 106/66
[2017-11-28 16:34] VITALS: BP 123/73
[2017-11-28 21:30] VITALS: BP 132/74
[2017-11-29 01:12] VITALS: BP 131/68
[2017-11-29 05:18] LABS: BASOPHILS 0.4 % (0-2); EOSINOPHILS 0.5 % (0-7); HEMATOCRIT 42.5 % (42.0-54.0); HEMOGLOBIN 13.5 g/dL (13.5-17.5); IMMATURE GRANULOCYTES 0.2 % (0-5); LYMPHOCYTES 17.3 % (15-50); MCH 27.7 pg (26.0-34.0); MCHC 31.8 g/dL (31.0-37.0); MCV 87.3 fL (80.0-100.0); MEAN PLATELET VOLUME 11.9 fL (7.4-10.4); MONOCYTES 10.7 % (2-11); NEUTROPHILS 70.9 % (40-80); PLATELET COUNT 114 10x3/uL (130-400); RBC 4.87 10x6/uL (4.20-6.10)
[2017-11-29 05:21] VITALS: BP 149/59
[2017-11-29 05:23] LABS: WBC 5.6 10x3/uL (4.8-10.8)
[2017-11-29 05:28] LABS: INR 3.49 (0.85-1.17); PROTIME 34.3 SECONDS (11.6-15.0)
[2017-11-29 05:31] LABS: ANION GAP 15.1 mmol/L (8-16); CARBON DIOXIDE 28.3 mmol/L (21.0-32.0); CREATININE - SERUM 2.2 mg/dL (0.6-1.3); POTASSIUM - SERUM 4.4 mmol/L (3.5-5.1)
[2017-11-29 08:09] VITALS: BP 110/63
[2017-11-29 11:34] VITALS: BP 132/74
[2017-11-29 15:36] VITALS: BP 129/70
[2017-11-29 19:22] VITALS: Ht 175.3 cm; Wt 125.3 kg
[2017-11-29 20:11] VITALS: BP 118/70
[2017-11-30] VITALS: BP 126/63
[2017-11-30 05:09] LABS: BASOPHILS 0.4 % (0-2); EOSINOPHILS 1.3 % (0-7); HEMATOCRIT 40.7 % (42.0-54.0); HEMOGLOBIN 12.9 g/dL (13.5-17.5); IMMATURE GRANULOCYTES 0.2 % (0-5); LYMPHOCYTES 16.1 % (15-50); MCH 27.5 pg (26.0-34.0); MCHC 31.7 g/dL (31.0-37.0); MCV 86.8 fL (80.0-100.0); MEAN PLATELET VOLUME 11.8 fL (7.4-10.4); MONOCYTES 9.8 % (2-11); NEUTROPHILS 72.2 % (40-80); PLATELET COUNT 110 10x3/uL (130-400); RBC 4.69 10x6/uL (4.20-6.10); RDW 17.8 % (11.5-14.5); WBC 5.3 10x3/uL (4.8-10.8)
[2017-11-30 05:15] LABS: ANION GAP 10.7 mmol/L (8-16); CALCIUM 8.6 mg/dL (8.5-10.1); CARBON DIOXIDE 31.6 mmol/L (21.0-32.0); POTASSIUM - SERUM 4.3 mmol/L (3.5-5.1)
[2017-11-30 05:20] LABS: INR 2.63 (0.85-1.17); PROTIME 27.4 SECONDS (11.6-15.0)
[2017-11-30 05:33] VITALS: BP 117/71
[2017-11-30 08:33] VITALS: BP 114/61
[2017-11-30 13:08] VITALS: BP 129/75
[2017-11-30 15:23] VITALS: BP 108/48
[2017-11-30 20:00] VITALS: BP 130/60
[2017-12-01] VITALS: BP 124/65
[2017-12-01 04:00] VITALS: BP 119/67
[2017-12-01 04:21] LABS: BASOPHILS 0.2 % (0-2); EOSINOPHILS 1.6 % (0-7); HEMATOCRIT 39.7 % (42.0-54.0); HEMOGLOBIN 12.7 g/dL (13.5-17.5); IMMATURE GRANULOCYTES 0.2 % (0-5); LYMPHOCYTES 19.3 % (15-50); MCH 27.9 pg (26.0-34.0); MCV 87.1 fL (80.0-100.0); MEAN PLATELET VOLUME 11.3 fL (7.4-10.4); MONOCYTES 9.6 % (2-11); NEUTROPHILS 69.1 % (40-80); PLATELET COUNT 115 10x3/uL (130-400); RBC 4.56 10x6/uL (4.20-6.10); RDW 17.7 % (11.5-14.5); WBC 5.1 10x3/uL (4.8-10.8)
[2017-12-01 04:31] LABS: ANION GAP 12.5 mmol/L (8-16); CALCIUM 8.6 mg/dL (8.5-10.1); CARBON DIOXIDE 32.3 mmol/L (21.0-32.0); CREATININE - SERUM 1.8 mg/dL (0.6-1.3); POTASSIUM - SERUM 3.8 mmol/L (3.5-5.1)
[2017-12-01 04:50] LABS: INR 2.16 (0.85-1.17); PROTIME 23.4 SECONDS (11.6-15.0)
[2017-12-01 09:56] VITALS: BP 109/62
[2017-12-01 12:23] VITALS: BP 138/66
[2017-12-01 16:59] VITALS: BP 122/57
[2017-12-01 20:33] VITALS: BP 168/66
[2017-12-02 00:41] VITALS: BP 136/80
[2017-12-02 05:50] VITALS: BP 137/70
[2017-12-02 06:49] LABS: ANION GAP 13.8 mmol/L (8-16); CALCIUM 8.9 mg/dL (8.5-10.1); CARBON DIOXIDE 29.9 mmol/L (21.0-32.0); CREATININE - SERUM 1.8 mg/dL (0.6-1.3); POTASSIUM - SERUM 3.7 mmol/L (3.5-5.1)
[2017-12-02 08:13] VITALS: BP 135/63
[2017-12-02 11:25] VITALS: BP 133/77
[2017-12-02 15:44] VITALS: BP 139/70
[2017-12-02 20:30] VITALS: BP 131/72
[2017-12-03 00:30] VITALS: BP 142/84
[2017-12-03 04:30] VITALS: BP 142/89
[2017-12-03 08:29] VITALS: BP 147/71
[2017-12-03 11:31] VITALS: BP 156/75
[2017-12-03 15:47] VITALS: BP 149/82
[2017-12-03 20:30] VITALS: BP 136/65
[2017-12-04 00:30] VITALS: BP 124/70
[2017-12-04 04:30] VITALS: BP 137/78
[2017-12-04 05:08] LABS: BASOPHILS 0.7 % (0-2); EOSINOPHILS 1.3 % (0-7); HEMATOCRIT 39.2 % (42.0-54.0); HEMOGLOBIN 12.3 g/dL (13.5-17.5); IMMATURE GRANULOCYTES 0.2 % (0-5); LYMPHOCYTES 17.5 % (15-50); MCH 27.3 pg (26.0-34.0); MCHC 31.4 g/dL (31.0-37.0); MCV 87.1 fL (80.0-100.0); MEAN PLATELET VOLUME 10.5 fL (7.4-10.4); MONOCYTES 8.3 % (2-11); PLATELET COUNT 112 10x3/uL (130-400); RDW 18.2 % (11.5-14.5); WBC 4.5 10x3/uL (4.8-10.8)
[2017-12-04 05:14] LABS: INR 1.4 (0.85-1.17); PROTIME 16.6 SECONDS (11.6-15.0)
[2017-12-04 05:25] LABS: ANION GAP 11.1 mmol/L (8-16); CALCIUM 8.8 mg/dL (8.5-10.1); CARBON DIOXIDE 31.7 mmol/L (21.0-32.0); CREATININE - SERUM 1.6 mg/dL (0.6-1.3); POTASSIUM - SERUM 3.8 mmol/L (3.5-5.1)
[2017-12-04 08:21] VITALS: BP 108/51
[2017-12-04 12:15] VITALS: BP 120/71
[2017-12-04 17:24] VITALS: BP 114/67
[2017-12-04 20:00] VITALS: BP 138/81
[2017-12-05 06:09] LABS: INR 1.36 (0.85-1.17); PROTIME 16.3 SECONDS (11.6-15.0)
[2017-12-05 06:46] VITALS: BP 129/63
[2017-12-05 08:51] VITALS: BP 97/58
[2017-12-05 09:30] VITALS: BP 120/70
[2017-12-05 12:29] VITALS: BP 130/69
[2017-12-05 17:28] VITALS: BP 128/65
[2017-12-05 20:00] VITALS: BP 129/70
[2017-12-06] VITALS: BP 117/70
[2017-12-06 04:00] VITALS: BP 121/72
[2017-12-06 06:17] LABS: INR 1.25 (0.85-1.17); PROTIME 15.3 SECONDS (11.6-15.0)
[2017-12-06 08:00] VITALS: BP 102/60; BP 110/77
[2017-12-06 12:00] VITALS: BP 110/66
[2017-12-06] MEDS ORDERED: BUMEX2 MG PO (12:48)
== END 2017-12-06 15:18 | disposition home health service (06) | DRG 291 ==
LOC: D.ER 12:55 → D.M2 16:24 → D.ER 16:54 → D.M2 16:54
PROVIDERS: Emergency Medicine; Family Medicine; Internal Medicine Cardiovascular Disease
DX: I13.0 Hypertensive heart and chronic kidney disease with heart failure and stage 1 through stage 4 chronic kidney disease, or unspecified chronic kidney disease (principal); I50.23 Acute on chronic systolic (congestive) heart failure; N18.9 Chronic kidney disease, unspecified; E11.22 Type 2 diabetes mellitus with diabetic chronic kidney disease; Z79.4 Long term (current) use of insulin; E11.42 Type 2 diabetes mellitus with diabetic polyneuropathy; I25.10 Atherosclerotic heart disease of native coronary artery without angina pectoris; F03.90 Unspecified dementia, unspecified severity, without behavioral disturbance, psychotic disturbance, mood disturbance, and anxiety; I48.91 Unspecified atrial fibrillation; G47.30 Sleep apnea, unspecified; N35.9 Urethral stricture, unspecified; I34.0 Nonrheumatic mitral (valve) insufficiency; I50.814 Right heart failure due to left heart failure; I25.5 Ischemic cardiomyopathy; L89.152 Pressure ulcer of sacral region, stage 2; Z95.0 Presence of cardiac pacemaker; Z95.5 Presence of coronary angioplasty implant and graft; Z95.1 Presence of aortocoronary bypass graft; Z87.891 Personal history of nicotine dependence